=== PATIENT | female | born 1955 | race Caucasian/White ===

== ENCOUNTER 2024-08-12 05:27 | Emergency (ER) | payer SELFPAY ==
[~2024-08-12] VITALS: Ht 154.9 cm; Wt 88.0 kg
[~2024-08-12 05:27] MED LIST: AMLO10 PO; ARIP30 PO; Anti-Diarrheal2 MG PO; BUPR75 PO; Culturelle1 CAP PO; HYDCHL25 PO
[2024-08-12] MEDS ORDERED: HYDROcodone 7.5MG-APAP 325MG /15ML UDC PO ONE (06:05)
[2024-08-12] MEDS ORDERED: HYDROCODONE-AC118 M5 PO (06:12)
[2024-08-12 07:09] VITALS: BP 131/84
== END 2024-08-12 07:05 | disposition home or self-care (01) ==
LOC: ER 05:27
DX: R51.9 Headache, unspecified (principal); Y84.2 Radiological procedure and radiotherapy as the cause of abnormal reaction of the patient, or of later complication, without mention of misadventure at the time of the procedure; C14.0 Malignant neoplasm of pharynx, unspecified; I10 Essential (primary) hypertension; Z79.899 Other long term (current) drug therapy
CPT/HCPCS: 99281; A9270

== ENCOUNTER 2024-10-28 11:29 | Emergency (ER) | payer OTHER ==
[~2024-10-28] VITALS: Ht 154.9 cm; Wt 83.9 kg
[~2024-10-28 11:29] MED LIST changes: +HYDROCODONE-AC118 M5 PO
[2024-10-28 12:53] LABS: BASOPHILS ABSOLUTE AUTO 0.01 K/mm3 (0.00-0.23); BASOPHILS PERCENT AUTO 0 % (0-2); EOSINOPHILS ABSOLUTE AUTO 0.04 K/mm3 (0.00-0.68); EOSINOPHILS PERCENT AUTO 1 % (0-6); Hematocrit 30.3 % (33.0-51.0); Hemoglobin 10.8 g/dL (11.5-16.0); IMMATURE GRAN ABSOLUTE AUTO 0.01 K/mm3 (0.00-0.10); IMMATURE GRAN PERCENT AUTO 0 % (0-1); LYMPHOCYTES ABSOLUTE AUTO 1.09 K/mm3 (0.84-5.20); LYMPHOCYTES PERCENT AUTO 21 % (21-46); MONOCYTES ABSOLUTE AUTO 0.54 K/mm3 (0.16-1.47); MONOCYTES PERCENT AUTO 11 % (4-13); Mean Corpuscular HGB Conc 35.6 g/dL (31.5-36.5); Mean Corpuscular Volume 95 fL (80-100); Mean Platelet Volume 8.4 fL (9.1-12.4); NEUTROPHILS PERCENT AUTO 67 % (41-73); Platelet Count 301 K/mm3 (150-400); RDW Standard Deviation 45.1 fL (35.1-46.3); Red Blood Cell Count 3.18 M/mm3 (3.80-5.20); White Blood Cell Count 5.09 K/mm3 (4.00-11.30)
[2024-10-28 13:12] LABS: Albumin, Blood 3.9 g/dL (3.4-5.0); Albumin/Globulin Ratio 1.2 (0.8-1.8); Bilirubin, Total 0.4 mg/dL (0.1-1.0); Bun/Creatinine Ratio 14.4 (12.0-20.0); Calcium, Blood 9.3 mg/dL (8.5-10.1); Creatinine, Blood 1.11 mg/dL (0.40-1.00); Globulin, Blood 3.2 g/dL (2.2-4.0); Potassium, Blood 4.3 mmol/L (3.5-5.5); Total Protein, Blood 7.1 g/dL (6.4-8.2)
[2024-10-28 15:57] LABS: International Normalized Ratio 1.07; Prothrombin Time Results 11.4 Sec (9.7-11.5)
[2024-10-28 23:14] VITALS: BP 110/76
== END 2024-10-28 23:17 | disposition home or self-care (01) ==
LOC: ER 11:29
PROVIDERS: Student in an Organized Health Care Education/Training Program
DX: R20.2 Paresthesia of skin (principal); G08 Intracranial and intraspinal phlebitis and thrombophlebitis; I10 Essential (primary) hypertension; Z79.899 Other long term (current) drug therapy
CPT/HCPCS: 70450; 80053; 83735; 84484; 85025; 85610; 85730; 93005; 93010; 99284-25

== ENCOUNTER 2024-12-27 15:50 | Emergency (ER) | payer OTHER ==
[~2024-12-27] VITALS: Ht 152.4 cm; Wt 67.1 kg
[~2024-12-27 15:50] MED LIST changes: +Ketamine HCl 100 MG / ML 5ML Vial IV ONE; +Lidocaine HCl 2% 20 MG/ML 5ML SYR IV ONE
[2024-12-27] MEDS ORDERED: Ampicillin Sod/Sulbactam Sod 3 GM in NS 100 ML IV ONE ×2 (17:15→21:10)
[2024-12-27] MEDS ORDERED: Morphine Sulfate 4 MG/1 ML Injection IV ONE ×2 (17:15→20:40)
[2024-12-27] MEDS ORDERED: Lactated Ringer's 1,000 ML IV ONE ×2 (17:15→20:40)
[2024-12-27] MEDS ORDERED: Ondansetron HCl 2 MG / ML 2ML Vial IV ONE ×2 (17:20→21:05)
[2024-12-27 18:15] LABS: BASOPHILS ABSOLUTE AUTO 0.01 K/mm3 (0.00-0.23); BASOPHILS PERCENT AUTO 0 % (0-2); EOSINOPHILS ABSOLUTE AUTO 0.03 K/mm3 (0.00-0.68); EOSINOPHILS PERCENT AUTO 0 % (0-6); Hematocrit 36.9 % (33.0-51.0); IMMATURE GRAN ABSOLUTE AUTO 0.01 K/mm3 (0.00-0.10); IMMATURE GRAN PERCENT AUTO 0 % (0-1); LYMPHOCYTES ABSOLUTE AUTO 0.86 K/mm3 (0.84-5.20); LYMPHOCYTES PERCENT AUTO 9 % (21-46); MONOCYTES ABSOLUTE AUTO 0.73 K/mm3 (0.16-1.47); MONOCYTES PERCENT AUTO 8 % (4-13); Mean Corpuscular HGB 34.1 pg (26.0-34.0); Mean Corpuscular HGB Conc 35.2 g/dL (31.5-36.5); Mean Corpuscular Volume 97 fL (80-100); NEUTROPHILS ABSOLUTE AUTO 7.53 K/mm3 (1.96-9.15); NEUTROPHILS PERCENT AUTO 82 % (41-73); Platelet Count 249 K/mm3 (150-400); RDW Coefficient Variation 11.3 % (11.7-14.2); RDW Standard Deviation 40.5 fL (35.1-46.3); Red Blood Cell Count 3.81 M/mm3 (3.80-5.20); White Blood Cell Count 9.17 K/mm3 (4.00-11.30)
[2024-12-27 18:38] LABS: Albumin, Blood 3.7 g/dL (3.4-5.0); Albumin/Globulin Ratio 1.1 (0.8-1.8); Bilirubin, Total 0.4 mg/dL (0.1-1.0); Bun/Creatinine Ratio 12.5 (12.0-20.0); Calcium, Blood 9.2 mg/dL (8.5-10.1); Creatinine, Blood 0.8 mg/dL (0.40-1.00); Globulin, Blood 3.3 g/dL (2.2-4.0); Potassium, Blood 3.7 mmol/L (3.5-5.5)
[2024-12-27] MEDS ORDERED: Dexamethasone Sod Phos 10 MG/ML 1ML VIAL IV ONE (20:40)
[2024-12-27] MEDS ORDERED: EPINEPHrine HCL 11.25 MG/0.5 ML VIAL INH ONE (20:50)
[2024-12-27] MEDS ORDERED: Glycopyrrolate 0.2 MG/ML 1MLVIAL IV ONE (21:00)
[2024-12-27] MEDS ORDERED: Ketamine HCl 100 MG / ML 5ML Vial IV ONE (21:00)
[2024-12-27] MEDS ORDERED: Lidocaine HCl 4% 5 ML SDA INH ONE (21:05)
[2024-12-27] MEDS ORDERED: Propofol 10mg/ml 20 ml Vial (Procedural) IV SCH (21:20)
[2024-12-27] MEDS ORDERED: propofoL 100 ML IV ONE (21:20)
[2024-12-27] MEDS ORDERED: fentaNYL citrate 1,000 MCG in NS 80 ML IV SCH (22:05)
[2024-12-27 22:35] VITALS: BP 167/97
== END 2024-12-27 22:45 | disposition short-term general hospital (02) ==
LOC: ER 15:50
PROVIDERS: Student in an Organized Health Care Education/Training Program
DX: K12.2 Cellulitis and abscess of mouth (principal); T50.995A Adverse effect of other drugs, medicaments and biological substances, initial encounter; C09.9 Malignant neoplasm of tonsil, unspecified; I10 Essential (primary) hypertension; Z79.899 Other long term (current) drug therapy
CPT/HCPCS: 31500; 36415; 70491; 71045; 80053; 83605; 85025; 87040; 94002; 94640; 96361-59; 96374-59; 96375-59; 96376-59; 99285-25; J0295; J1100; J2003; J2270; J2405; J2704; J3010; J7120; Q9967